=== PATIENT | male | born 1975 | race African-American/Black ===

== ENCOUNTER 2024-02-22 17:09 | Emergency (ER) | payer OTHER ==
[2024-02-22] MEDS ORDERED: Ketorolac Tromethamine 30 MG (1 mL) VIAL ONE (18:37)
[2024-02-22] MEDS ORDERED: Cyclobenzaprine 10 MG TAB ONE (18:37)
== END 2024-02-22 19:12 | disposition home or self-care (01) ==
LOC: ERS 17:09
DX: M54.2 Cervicalgia (principal); M54.50 Low back pain, unspecified; I10 Essential (primary) hypertension; E11.9 Type 2 diabetes mellitus without complications
CPT/HCPCS: 96372; 99283; J1885